=== PATIENT | female | born 1985 | race American Indian/Alaskan Native ===

== ENCOUNTER 2016-05-29 17:23 | Emergency (ER) | payer MEDICAID ==
[2016-05-29 17:46] VITALS: BP 156/110
== END 2016-05-29 17:50 | disposition left against medical advice (07) ==
LOC: ED 17:23
DX: R07.89 Other chest pain (principal); M79.602 Pain in left arm; F31.9 Bipolar disorder, unspecified; F20.9 Schizophrenia, unspecified; Z88.8 Allergy status to other drugs, medicaments and biological substances; Z53.21 Procedure and treatment not carried out due to patient leaving prior to being seen by health care provider

== ENCOUNTER 2016-05-30 01:13 | Emergency (ER) | payer MEDICAID ==
[2016-05-30 02:47] LABS: INR 0.95 (0.87-1.13)
[2016-05-30 02:48] LABS: Partial Thromboplastin Time 30.8 Sec. (24.2-36.6)
[2016-05-30 02:52] LABS: Anion Gap 19 mmol/L; BUN/Creatinine Ratio 11.42; Blood Urea Nitrogen 8 mg/dL (7-17); Calcium 9.3 mg/dL (8.4-10.2); Carbon Dioxide 22 mmol/L (22-30); Chloride 98.7 mmol/L (98-107); Glucose 102 mg/dL (65-100); Potassium 3.7 mmol/L (3.6-5.0); Sodium 136 mmol/L (137-145)
[2016-05-30 02:56] LABS: Basophils % (Auto) 1.1 % (0.0-1.8); Eosinophils % (Auto) 2.4 % (0.0-4.3); Hematocrit 39.4 % (30.3-42.9); Hemoglobin 13.1 gm/dl (10.1-14.3); Mean Corpuscular HGB Conc 33 % (30-34); Mean Corpuscular Hemoglobin 29 pg (28-32); Mean Corpuscular Volume 87 fl (79-97); Red Blood Count 4.52 M/mm3 (3.65-5.03); White Blood Count 5.1 K/mm3 (4.5-11.0)
[2016-05-30 03:19] LABS: Urine Drugs of Abuse Note Disclamer
[2016-05-30 03:31] LABS: Bilirubin,Urine NEG (Negative); Blood,Urine NEG (Negative); Ketones,Urine 20 mg/dL (Negative); Leukocyte Esterase,Urine NEG (Negative); Nitrite,Urine NEG (Negative); Protein,Urine <15 mg/dL mg/dL (Negative); RBC,Urine < 1.0 /HPF (0.0-6.0); Urobilinogen,Urine < 2.0 mg/dL (<2.0)
[2016-05-30 03:39] LABS: Mucus,Urine 1+ /HPF; WBC,Urine < 1.0 /HPF (0.0-6.0)
[2016-05-30 04:54] LABS: Platelet Count 158 K/mm3 (140-440)
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
--- NOTE | 2016-05-30 11:25 | History and Physical Report ---
Medications and Allergies Allergies Allergy/AdvReac Type Severity Reaction Status Date / Time haloperidol [From Haldol] Allergy Seizure Verified 10/15/13 11:49 haloperidol lactate Allergy Seizure Verified 10/15/13 11:49 [From Haldol] Home Medications Medication Instructions Recorded Confirmed Last Taken Type Clindamycin [Clindamycin CAP] 300 mg PO BID 05/30/16 05/30/16 Unknown History OXcarbazepine [Trileptal] 300 mg PO DAILY 05/30/16 05/30/16 Unknown History Venlafaxine HCl [Venlafaxine ER] 150 mg PO QHS 05/30/16 05/30/16 Unknown History Exam - Constitutional Vitals: Temp Pulse Resp BP Pulse Ox 98.5 F 98 H 12 159/111 100 05/30/16 05:33 05/30/16 05:33 05/30/16 05:33 05/30/16 05:33 05/30/16 05:33 Results - Labs CBC & Chem 7: 05/30/16 02:10 05/30/16 02:10 Labs: Abnormal lab results 05/30/16 05/30/16 05/30/16 Range/Units 02:10 02:10 02:10 RDW 13.0 L (13.2-15.2) % Lymph % (Auto) 37.5 H (13.4-35.0) % [place] % (Auto) 8.9 H (0.0-7.3) % VBG pH 7.421 H (7.320-7.420) Sodium 136 L (137-145) mmol/L Glucose 102 H (65-100) mg/dL
[2016-05-30 11:45] VITALS: BP 155/96
== END 2016-05-30 12:40 | disposition left against medical advice (07) ==
LOC: ED 01:13
DX: E07.89 Other specified disorders of thyroid (principal); F14.10 Cocaine abuse, uncomplicated; J45.909 Unspecified asthma, uncomplicated; F17.200 Nicotine dependence, unspecified, uncomplicated
CPT/HCPCS: 36415; 80048; 80307; 81001; 82805; 84484; 84703; 85025; 85610; 85730; 93005; 93010; 99284; G0480; 80320

== ENCOUNTER 2016-05-30 15:57 | Emergency (ER) | payer MEDICAID ==
[2016-05-31] MEDS ORDERED: NORMODYNE IV ONE (01:36)
--- NOTE | 2016-05-31 01:39 | Emergency Department Report ---
ED Chest Pain HPI - General Chief Complaint: Chest Pain Stated Complaint: HBP/L SIDE HURT Time Seen by Provider: 05/31/16 01:25 Source: patient Mode of arrival: Ambulatory Limitations: No Limitations - History of Present Illness Initial Comments: This is a 30-year-old -[place] female presents the emergency department with complaint of some left-sided chest pain with radiation down the left arm has been going on since yesterday. The patient was at [facility] much earlier this morning and was seen by a different ER physician. I believe at that point the patient was going to be admitted to hospital for chest pain, hypertension and cocaine use, despite the fact that she denies knowing when she may have taken that drug. However, the patient had to leave AMA at that point for family issues. She now says that she returns because "the other ER doctor told me I needed to be admitted." Patient denies any significant chest discomfort at this time, just some mild left shoulder pain. She has a past medical history of asthma. She has a psychiatric history of schizophrenia. She denies tobacco abuse. She is not taken anything for symptoms prior to presentation. She has a primary care doctor for follow-up and has not seen them regarding her symptoms. No recent travel or sick contacts at home. - Related Data Home Medications Medication Instructions Recorded Confirmed Last Taken Clindamycin [Clindamycin CAP] 300 mg PO BID 05/30/16 05/30/16 Unknown OXcarbazepine [Trileptal] 300 mg PO DAILY 05/30/16 05/30/16 Unknown Venlafaxine HCl [Venlafaxine ER] 150 mg PO QHS 05/30/16 05/30/16 Unknown Previous Rx's Medication Instructions Recorded Last Taken Type amLODIPine [Norvasc] 5 mg PO DAILY #30 tab 05/31/16 Unknown Rx Allergies Allergy/AdvReac Type Severity Reaction Status Date / Time haloperidol [From Haldol] Allergy Seizure Verified 10/15/13 11:49 haloperidol lactate Allergy Seizure Verified 10/15/13 11:49 [From Haldol] ALEX score - Alex Score Age > 65: (0) No Aspirin use within the Past 7 Days: (0) No 3 or more CAD Risk Factors: (0) No 2 or more Angina events in past 24 hrs: (1) Yes Known CAD with more than 50% Stenosis: (0) No Elevated Cardiac Markers: (0) No ST Deviation Greater than 0.5mm: (0) No ALEX Score: 1 ED Review of Systems ROS: Stated complaint: HBP/L SIDE HURT Other details as noted in HPI Comment: All other systems reviewed and negative Constitutional: denies: chills, fever Eyes: denies: eye pain, eye discharge, vision change ENT: denies: ear pain, throat pain Respiratory: denies: cough, shortness of breath, wheezing Cardiovascular: chest pain. denies: palpitations Gastrointestinal: denies: abdominal pain, nausea, diarrhea Genitourinary: denies: urgency, dysuria, discharge Musculoskeletal: denies: back pain, joint swelling Skin: denies: rash, lesions Neurological: denies: headache, weakness, paresthesias ED Past Medical Hx - Past Medical History Hx Psychiatric Treatment: Yes (bipolar, schizophrenia) Hx Asthma: Yes - Surgical History Additional Surgical History: 3 c-sections; DNC - Social History Smoking Status: Current Some Day Smoker Substance Use Type: Alcohol - Medications Home Medications: Home Medications Medication Instructions Recorded Confirmed Last Taken Type Clindamycin [Clindamycin CAP] 300 mg PO BID 05/30/16 05/30/16 Unknown History OXcarbazepine [Trileptal] 300 mg PO DAILY 05/30/16 05/30/16 Unknown History Venlafaxine HCl [Venlafaxine ER] 150 mg PO QHS 05/30/16 05/30/16 Unknown History amLODIPine [Norvasc] 5 mg PO DAILY #30 tab 05/31/16 Unknown Rx ED Physical Exam - General Limitations: No Limitations - Other Other exam information: GENERAL: The patient is well-developed well-nourished. HEENT: Normocephalic. Atraumatic. Extraocular motions are intact. Patient has moist mucous membranes. Pupils equal reactive to light bilaterally. NECK: Supple. Trachea is midline. CHEST/LUNGS: Clear to auscultation. There is no respiratory distress noted. There is some chest pain to palpation of chest wall. HEART/CARDIOVASCULAR: Regular. There is no tachycardia. There is no gallop rub or murmur. ABDOMEN: Abdomen is soft, nontender. Patient has normal bowel sounds. There is no abdominal distention. SKIN: Skin is warm and dry. NEURO: The patient is awake, alert, and oriented. The patient is cooperative. The patient has no focal neurologic deficits. The patient has normal speech. MUSCULOSKELETAL: There is no tenderness or deformity. There is no limitation range of motion. There is no evidence of acute injury. ED Course Vital Signs 05/30/16 05/31/16 05/31/16 17:36 01:36 03:00 Temperature 98.7 F Pulse Rate 77 74 82 Respiratory 20 18 Rate Blood Pressure 172/116 Blood Pressure 132/59 151/96 [Right] O2 Sat by Pulse 100 99 99 Oximetry 05/31/16 03:40 Temperature 98.2 F Pulse Rate 70 Respiratory 20 Rate Blood Pressure Blood Pressure 128/48 [Right] O2 Sat by Pulse 98 Oximetry ED Medical Decision Making - EKG Data -: EKG Interpreted by Me EKG shows normal: sinus rhythm, axis, intervals, QRS complexes, ST-T waves Rate: normal - EKG Data When compared to previous EKG there are: previous EKG unavailable Interpretation: normal EKG - Radiology Data Radiology results: image reviewed interpreted by me: Chest x-ray did not show any acute process. Heart is normal shape and size. No effusions. No pneumothorax. No signs of pneumonia seen. - Medical Decision Making This is a 30-year-old female who presents to the emergency department for the second time today for some chest pain that she has developed since yesterday. She was seen this morning by one of my colleagues and had full cardiac lab work including negative troponins 2. At that time her CBC did not show any significant leukocytosis, the metabolic panel did not show any significant electrolyte abnormalities, renal insufficiency or glucose abnormalities. However the urine drug screen at that time was positive for cocaine. The patient had denied to the previous ER physician that she had knowingly taken any cocaine. One major issue for her during that workup was her hypertension. Due to her cocaine use and hypertension, the plan was going to be for the patient be admitted she had to take care of some family issues and signed out AGAINST MEDICAL ADVICE. However the patient returned to the emergency department about 4 PM in the afternoon for further evaluation. Patient had a troponin done a few hours into her workup and was eventually brought back to the main emergency department where I saw the patient. With the negative troponin this evening, she has had 3 negative troponins and total, many hours apart. Patient had a negative d- dimer this evening. A repeat EKG was done that showed normal sinus rhythm, normal EKG, without ST elevation ID, ischemia or dysrhythmia. A chest x-ray was done that did not show any acute process including no pneumonia, pneumothorax or pleural effusions. Patient did have some elevated blood pressure while first saw her but it came down to more reasonable level without any antihypertensives medication. Patient has a ALEX score of one if her pain is to be considered angina and 0 if it is not. Patient is very low on the heart score with a risk of future adverse event of less than 1.7%. Patient was reevaluated multiple times and is feeling much better. Heart and lung sounds are normal to auscultation. There is some reproducible chest pain to the chest wall. Patient is not only low on the well's score criteria and negative for the pulmonary embolism rule out criteria, but a d-dimer was obtained anyways and was negative as well. For all these reasons I feel the patient is safe for discharge home at this time. She has good follow-up with Dr. Ontiveros for primary care to discuss her hypertension. She was given a referral for Dr. Polanco, cardiology, in case she needs to follow up regarding her chest discomfort. We discussed dietary changes to make. Patient was started on Norvasc and I have requested for her to keep a blood pressure log. She will return to the ER with any worsening of her symptoms or any acute distress. HEART Score for Major Cardiac Events from [email or web address] on 05/31/2016 All calculations should be rechecked by clinician prior to use RESULT SUMMARY: 1 points Low Score (0-3 points) Risk of MACE of 0.9-1.7%. INPUTS: History > Slightly suspicious EKG > Normal Age > < 45 Risk factors > 1-2 risk factors Troponin > = normal limit - Differential Diagnosis ID, costochondritis, pneumonia, cocaine abuse Critical Care Time: No Critical care attestation.: If time is entered above; I have spent that time in minutes in the direct care of this critically ill patient, excluding procedure time. ED Disposition Clinical Impression: Chest pain Qualifiers: Chest pain type: unspecified Qualified Code(s): R07.9 - Chest pain, unspecified Hypertension Qualifiers: Hypertension type: essential hypertension Qualified Code(s): I10 - Essential ( primary) hypertension Disposition: DISCHARGED TO HOME OR SELFCARE Is pt being admited?: No Condition: Stable Instructions: Chest Pain (ED), Hypertension (ED) Additional Instructions: Please follow-up with your primary care doctor in the next few days. I have also given you a referral for a local civil engineering professor, Dr. Polanco, in case she needs to follow up regarding your chest pain. I have started you on a blood pressure medication called Norvasc to be taken once per day. Keep a blood pressure log. Try to stay away from foods that are high in salt and caffeinated products to assist with your blood pressure. Return to the emergency department with any worsening of your symptoms or any acute distress. Prescriptions: amLODIPine [Norvasc] 5 mg PO DAILY #30 tab Referrals: KEVYN POLANCO MD [Staff Physician] - 3-5 Days PRIMARY CAREMD [Primary Care Provider] - 3-5 Days XIANG ONTIVEROS MD [Staff Physician] - 3-5 Days Time of Disposition: 03:43
[2016-05-31 03:50] VITALS: BP 128/48
--- NOTE | 2016-05-31 09:42 | XRay Report ---
Chest 2 views: History: Chest pain. Findings: Normal cardiomediastinal silhouette. Trachea is midline. No consolidation, pneumothorax or pleural effusion. Impression: No acute cardiopulmonary findings.
== END 2016-05-31 04:00 | disposition home or self-care (01) ==
LOC: ED 15:57
DX: R07.9 Chest pain, unspecified (principal); I10 Essential (primary) hypertension; F41.9 Anxiety disorder, unspecified; F20.9 Schizophrenia, unspecified; J45.909 Unspecified asthma, uncomplicated; F17.200 Nicotine dependence, unspecified, uncomplicated; Z88.8 Allergy status to other drugs, medicaments and biological substances
CPT/HCPCS: 36415; 71020; 84484; 85379; 93005; 93010

== ENCOUNTER 2016-10-23 14:19 | Emergency (ER) | payer MEDICAID ==
[2016-10-23 16:00] VITALS: BP 120/73
--- NOTE | 2016-10-23 16:50 | Emergency Department Report ---
HPI - General Chief Complaint: Medical Clearance Time Seen by Provider: 10/23/16 16:42 - HPI HPI: patient wants to be tested for hepatitis b, she was told to do so by the plasma center while she attempted to donate plasma. she denies any symptoms, such as abdominal pain, vaginal discharge, n/v. patient denies any risks factors for stds such as recent sexual encounter without condoms, iv drug use. patient was given a medical screening exam and advised to f/u at the health dept , since no emergent condition was discovered during the exam. ED Past Medical Hx - Past Medical History Previous Medical History?: Yes Hx Hypertension: Yes Hx Psychiatric Treatment: Yes (bipolar, schizophrenia) Hx Asthma: Yes - Surgical History Past Surgical History?: Yes Additional Surgical History: 3 c-sections; DNC - Social History Smoking Status: Former Smoker Substance Use Type: Alcohol - Medications Home Medications: Home Medications Medication Instructions Recorded Confirmed Last Taken Type OXcarbazepine [Trileptal] 300 mg PO DAILY 05/30/16 10/23/16 Unknown History amLODIPine [Norvasc] 5 mg PO DAILY #30 tab 05/31/16 10/23/16 10/23/16 Rx 5mg ED Review of Systems ROS: Stated complaint: STD TESTING Other details as noted in HPI Comment: All other systems reviewed and negative Constitutional: no symptoms reported Respiratory: no symptoms reported Endocrine: no symptoms reported Gastrointestinal: other (denies any abd pain, vag discharge.) Physical Exam - Physical Exam Vital Signs: Vital Signs 10/23/16 10/23/16 10/23/16 14:28 15:58 16:00 Temperature 98.9 F 98.6 F Pulse Rate 88 82 Respiratory 18 18 18 Rate Blood Pressure 145/96 Blood Pressure 120/73 [Right] O2 Sat by Pulse 100 100 Oximetry Physical Exam: GENERAL: The patient is well-developed well-nourished female HEENT: Normocephalic. Atraumatic. Extraocular motions are intact. Patient has moist mucous membranes. NECK: Supple. No meningitic signs are noted. There is no adenopathy noted. CHEST/LUNGS: Clear to auscultation. There is no respiratory distress noted. HEART/CARDIOVASCULAR: Regular. There is no tachycardia. There is no gallop rub or murmur. ABDOMEN: Abdomen is soft, nontender. Patient has normal bowel sounds. There is no abdominal distention. SKIN: There is no rash. There is no edema. There is no diaphoresis. NEURO: The patient is awake, alert, and oriented. The patient is cooperative. The patient has no focal neurologic deficits. The patient has normal speech and gait. Cranial nerves II through XII grossly intact, no drift. Negative Romberg MUSCULOSKELETAL: no back pain, normal extremities ED Course Vital Signs 10/23/16 10/23/16 10/23/16 14:28 15:58 16:00 Temperature 98.9 F 98.6 F Pulse Rate 88 82 Respiratory 18 18 18 Rate Blood Pressure 145/96 Blood Pressure 120/73 [Right] O2 Sat by Pulse 100 100 Oximetry Critical care attestation.: If time is entered above; I have spent that time in minutes in the direct care of this critically ill patient, excluding procedure time. ED Disposition Clinical Impression: Encounter for medical screening examination Disposition: DC-01 TO HOME OR SELFCARE Is pt being admited?: No Does the pt Need Aspirin: No Condition: Stable Referrals: PRIMARY CARE [Primary Care Provider] - 3-5 Days [facility] [Referring] - 3-5 Days
== END 2016-10-23 17:07 | disposition home or self-care (01) ==
LOC: ED 14:19
DX: Z00.00 Encounter for general adult medical examination without abnormal findings (principal); I10 Essential (primary) hypertension; J45.909 Unspecified asthma, uncomplicated; Z87.891 Personal history of nicotine dependence
CPT/HCPCS: 99282

== ENCOUNTER 2017-05-24 15:05 | Emergency (ER) | payer MEDICAID ==
[2017-05-24 15:18] VITALS: BP 160/96
== END 2017-05-24 18:01 | disposition left against medical advice (07) ==
LOC: ED 15:05
DX: Z53.21 Procedure and treatment not carried out due to patient leaving prior to being seen by health care provider (principal)

== ENCOUNTER 2017-05-25 13:39 | Emergency (ER) | payer MEDICAID ==
[2017-05-25 14:36] VITALS: BP 111/98
[2017-05-25] MEDS ORDERED: AUGMENTIN 875 MG PO ONE (17:37)
[2017-05-25] MEDS ORDERED: MOTRIN PO ONE (17:47)
[2017-05-25] MEDS ORDERED: BOOSTRIX IM ONE (17:56)
--- NOTE | 2017-05-25 18:01 | Emergency Department Report ---
ED Animal Bite HPI - General Chief Complaint: Animal Bite Stated Complaint: DOG BITE Time Seen by Provider: 05/25/17 17:37 Source: patient Mode of arrival: Ambulatory Limitations: No Limitations - History of Present Illness Initial Comments: 31-year-old female presents with dog bite to right foot. Patient states that this was an own dog. As per patient and patient's friend dog has received its vaccinations. Dog has a commercial reporter. Patient states that this is a pit bull. States that it grazed her right foot. Denies any other injuries. Patient is unaware of her tetanus status. Denies any fever or chills. Denies any erythema or purulence at site of bite. States occurred early yesterday. Patient states that animal control was notified of the bite incident. Dog has no previous history of biting other people. MD Complaint: animal bite Onset/Timin -: days(s) Location: other (right foot) Right: Foot Animal: dog Animal Control Notified: Yes Description: household pet, immunizations UTD Mechanism: bite Context: unprovoked Associated Symptoms: none - Related Data Home Medications Medication Instructions Recorded Confirmed Last Taken OXcarbazepine [Trileptal] 300 mg PO DAILY 05/30/16 10/23/16 Unknown Previous Rx's Medication Instructions Recorded Last Taken Type amLODIPine [Norvasc] 5 mg PO DAILY #30 tab 05/31/16 10/23/16 Rx 5mg Amoxicillin/Potassium Clav 1 each PO BID #20 tablet 05/25/17 Unknown Rx [Augmentin 875-125 Tablet] Bacitracin Zinc Oint [Antibiotic 1 applicatio TP BID #1 tube 05/25/17 Unknown Rx Oint] Ibuprofen [Motrin] 600 mg PO Q8H PRN #15 tablet 05/25/17 Unknown Rx Allergies Allergy/AdvReac Type Severity Reaction Status Date / Time haloperidol [From Haldol] Allergy Seizure Verified 10/23/16 14:28 ED Review of Systems ROS: Stated complaint: DOG BITE Other details as noted in HPI Constitutional: denies: chills, fever Eyes: denies: eye pain, eye discharge, vision change ENT: denies: ear pain, throat pain Respiratory: denies: cough, shortness of breath, wheezing Cardiovascular: denies: chest pain, palpitations Endocrine: no symptoms reported Gastrointestinal: denies: abdominal pain, nausea, diarrhea Genitourinary: denies: urgency, dysuria, discharge Musculoskeletal: denies: back pain, joint swelling, arthralgia Skin: denies: rash, lesions Neurological: denies: headache, weakness, paresthesias Psychiatric: denies: anxiety, depression Hematological/Lymphatic: denies: easy bleeding, easy bruising ED Past Medical Hx - Past Medical History Previous Medical History?: Yes Hx Hypertension: Yes Hx Psychiatric Treatment: Yes (bipolar, schizophrenia) Hx Asthma: Yes Additional medical history: Higfh cholesterol - Surgical History Past Surgical History?: Yes Additional Surgical History: 3 c-sections; DNC - Social History Smoking Status: Current Every Day Smoker Substance Use Type: Alcohol, Marijuana - Medications Home Medications: Home Medications Medication Instructions Recorded Confirmed Last Taken Type OXcarbazepine [Trileptal] 300 mg PO DAILY 05/30/16 10/23/16 Unknown History amLODIPine [Norvasc] 5 mg PO DAILY #30 tab 05/31/16 10/23/16 10/23/16 Rx 5mg Amoxicillin/Potassium Clav 1 each PO BID #20 tablet 05/25/17 Unknown Rx [Augmentin 875-125 Tablet] Bacitracin Zinc Oint [Antibiotic 1 applicatio TP BID #1 tube 05/25/17 Unknown Rx Oint] Ibuprofen [Motrin] 600 mg PO Q8H PRN #15 tablet 05/25/17 Unknown Rx ED Physical Exam - General Limitations: No Limitations General appearance: alert, in no apparent distress - Head Head exam: Present: atraumatic, normocephalic - Eye Eye exam: Present: normal appearance, PERRL, EOMI - ENT ENT exam: Present: mucous membranes moist - Neck Neck exam: Present: normal inspection - Respiratory Respiratory exam: Present: normal lung sounds bilaterally. Absent: respiratory distress - Cardiovascular Cardiovascular Exam: Present: regular rate, normal rhythm. Absent: systolic murmur, diastolic murmur, rubs, gallop - GI/Abdominal GI/Abdominal exam: Present: soft, normal bowel sounds - Extremities Exam Extremities exam: Present: normal inspection - Expanded Lower Extremity Exam Right Upper Leg exam: Present: normal inspection, full ROM Knee exam: Present: normal inspection, full ROM Lower Leg exam: Present: normal inspection, full ROM Ankle exam: Present: normal inspection, full ROM Foot/Toe exam: Present: abrasion (abrasion on the dorsal side of foot) Neuro vascular tendon exam: Present: no vascular compromise (distal pulses are strong to palpation) Gait: Positive: observed and normal 1 - Abrasion here - Back Exam Back exam: Present: normal inspection - Neurological Exam Neurological exam: Present: alert, oriented X3, CN II-XII intact, normal gait - Psychiatric Psychiatric exam: Present: normal affect, normal mood - Skin Skin exam: Present: warm, dry, intact, normal color. Absent: rash ED Course Vital Signs 05/25/17 14:31 Temperature 97.9 F Pulse Rate 89 Respiratory 20 Rate Blood Pressure 111/98 O2 Sat by Pulse 99 Oximetry Critical care attestation.: If time is entered above; I have spent that time in minutes in the direct care of this critically ill patient, excluding procedure time. Critical Care Time: A/P: Dog bite to right foot 1-tetanus updated today 2-this is an observed animal with known vaccinations no indication for rabies vaccination as this time incident reported to [facility] animal control 3-Motrin when necessary, topical bacitracin, 10 day course of Augmentin 4-patient has small abrasion on top of right foot no significant puncture wound or laceration otherwise. Patient is ambulatory without assistance ED Disposition Clinical Impression: Dog bite of right foot Qualifiers: Encounter type: initial encounter Qualified Code(s): S91.351A - Open bite, right foot, initial encounter; W54.0XXA - Bitten by dog, initial encounter Disposition: TO HOME OR SELFCARE Is pt being admited?: No Does the pt Need Aspirin: No Condition: Stable Instructions: Animal Bite (ED) Prescriptions: Amoxicillin/Potassium Clav [Augmentin 875-125 Tablet] 1 each PO BID #20 tablet Bacitracin Zinc Oint [Antibiotic Oint] 1 applicatio TP BID #1 tube Ibuprofen [Motrin] 600 mg PO Q8H PRN #15 tablet PRN Reason: Pain Referrals: [facility] [Outside] - 3-5 Days Forms: Work/School Release Form(ED) Time of Disposition: 18:01
--- NOTE | 2017-05-25 21:52 | Emergency Department Report ---
Chief Complaint: Animal Bite Stated Complaint: DOG BITE Time Seen by Provider: 05/25/17 17:37 - HPI History of Present Illness: The patient is a 31-year-old female presents for evaluation of dog bite. The patient's she was bit on the right foot one day ago by a pit bull. She states that the dog belonged to a friend, but that the friend is unsure if rabies shots were given. The patient denies fever, redness, swelling, paresthesia, motor deficit, purulent drainage or discharge. - Exam Vital Signs: Vital Signs 05/25/17 05/25/17 14:31 18:14 Temperature 97.9 F Pulse Rate 89 Respiratory 20 16 Rate Blood Pressure 111/98 O2 Sat by Pulse 99 Oximetry MSE screening note: Focused history and physical exam performed. Due to findings the following was ordered: ED Disposition for MSE Clinical Impression: Dog bite of right foot Qualifiers: Encounter type: initial encounter Qualified Code(s): S91.351A - Open bite, right foot, initial encounter Disposition: - TO HOME OR SELFCARE Condition: Stable Instructions: Animal Bite (ED) Prescriptions: Amoxicillin/Potassium Clav [Augmentin 875-125 Tablet] 1 each PO BID #20 tablet Bacitracin Zinc Oint [Antibiotic Oint] 1 applicatio TP BID #1 tube Ibuprofen [Motrin] 600 mg PO Q8H PRN #15 tablet PRN Reason: Pain Referrals: [facility] [Outside] - 3-5 Days Forms: Work/School Release Form(ED)
== END 2017-05-25 18:20 | disposition home or self-care (01) ==
LOC: ED 13:39
DX: S91.351A Open bite, right foot, initial encounter (principal); I10 Essential (primary) hypertension; F31.9 Bipolar disorder, unspecified; F20.9 Schizophrenia, unspecified; J45.909 Unspecified asthma, uncomplicated; E78.00 Pure hypercholesterolemia, unspecified; F17.200 Nicotine dependence, unspecified, uncomplicated; W54.0XXA Bitten by dog, initial encounter; Y93.89 Activity, other specified; Y92.89 Other specified places as the place of occurrence of the external cause; Y99.8 Other external cause status
CPT/HCPCS: 90471; 90715; 99282

== ENCOUNTER 2017-07-16 13:31 | Outpatient (CLI) | payer MEDICAID ==
--- NOTE | 2017-07-16 14:20 | Ultrasound Report ---
Sonogram left axilla: History: Lump under arm. Findings: No definite cystic mass or lymph adenopathy noted. There is a small nodule identified within the skin measuring 0.3 x 0.2 x 0.3 cm. This appears to be benign and probably a sebaceous cyst. Impression: Findings as detailed above.
== END 2017-07-16 13:32 | disposition home or self-care (01) ==
LOC: US 13:31
PROVIDERS: ATTEND Surgery
DX: R22.32 Localized swelling, mass and lump, left upper limb (principal); R10.9 Unspecified abdominal pain

== ENCOUNTER 2018-12-16 20:47 | Emergency (ER) | payer MEDICAID ==
[2018-12-16 21:07] VITALS: BP 132/72
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
== END 2018-12-16 23:15 | disposition home or self-care (01) ==
LOC: ED 20:47
DX: S61.412A Laceration without foreign body of left hand, initial encounter (principal); S41.111A Laceration without foreign body of right upper arm, initial encounter; I10 Essential (primary) hypertension; F31.9 Bipolar disorder, unspecified; F20.9 Schizophrenia, unspecified; J45.909 Unspecified asthma, uncomplicated; E78.00 Pure hypercholesterolemia, unspecified; Z79.899 Other long term (current) drug therapy; Z88.8 Allergy status to other drugs, medicaments and biological substances; W22.8XXA Striking against or struck by other objects, initial encounter; Y93.89 Activity, other specified; Y92.89 Other specified places as the place of occurrence of the external cause; Y99.8 Other external cause status
CPT/HCPCS: 99282